=== PATIENT | male | born 1980 | race Caucasian/White ===

== ENCOUNTER 2017-10-13 12:47 | Emergency (ER) | payer SELFPAY ==
[~2017-10-13] VITALS: Ht 160 cm; Wt 90.9 kg
[2017-10-13 12:53] VITALS: TEMP 98.5
[2017-10-13] MEDS ORDERED: CEPHALEXIN500 M1 PO (15:15)
[2017-10-13] MEDS ORDERED: NORCO 325 MG-51 TAB PO (15:15)
[2017-10-13 15:27] VITALS: BP 126/76; PULSE 81
== END 2017-10-13 15:29 | disposition home or self-care (01) ==
LOC: COL.ER 12:47
DX: S61.432A Puncture wound without foreign body of left hand, initial encounter (principal); G43.909 Migraine, unspecified, not intractable, without status migrainosus; Z23 Encounter for immunization; W45.0XXA Nail entering through skin, initial encounter; Y92.69 Other specified industrial and construction area as the place of occurrence of the external cause; Y99.0 Civilian activity done for income or pay
CPT/HCPCS: J2270; J3010

== ENCOUNTER 2017-10-21 08:18 | Outpatient (RCR) | payer OTHER ==
[~2017-10-21 08:18] MED LIST: CEPHALEXIN500 M1 PO; NORCO 325 MG-51 TAB PO
== END 2017-11-17 13:34 | disposition home or self-care (01) ==
LOC: WSOH 08:18
DX: S61.442A Puncture wound with foreign body of left hand, initial encounter (principal); W29.4XXA Contact with nail gun, initial encounter; Y99.0 Civilian activity done for income or pay